=== PATIENT | male | born 1980 | race Caucasian/White ===

== ENCOUNTER 2016-10-24 06:52 | Emergency (ER) | payer BC ==
[~2016-10-24] VITALS: Ht 182.9 cm; Wt 83.9 kg
--- NOTE | 2016-10-24 06:52 | NUR ---
PT BIB SELF LEFT TESTICULAR PAIN X 2 HRS, TOOK OTC SEXUAL ENHANCING PILLS. VSS. AWAITING MD ORDER.
[2016-10-24] MEDS ORDERED: ONDANSETRON HCL/PF 4 MG/2 ML VIAL ONE (07:08)
[2016-10-24] MEDS ORDERED: KETOROLAC TROMETHAMINE 15 MG/ML VIAL ONE (07:08)
[2016-10-24] MEDS ORDERED: MORPHINE SULFATE INJ 4 MG/ML DISP.SYRIN ONE (07:08)
--- NOTE | 2016-10-24 07:10 | NUR ---
AT BEDSIDE FOR EVAL
[2016-10-24] MEDS ORDERED: ONDANSETRON HCL/PF 4 MG/2 ML VIAL IVP ONE (07:30)
[2016-10-24] MEDS ORDERED: KETOROLAC TROMETHAMINE INJ 30 MG/ML VIAL IV ONE (07:30)
[2016-10-24] MEDS ORDERED: MORPHINE SULFATE INJ 2 MG/ML DISP.SYRIN IV ONE (07:30)
--- NOTE | 2016-10-24 07:45 | NUR ---
BIAS BINDING FOLDER AT BEDSIDE
[2016-10-24] MEDS ORDERED: AZITHROMYCIN 250 MG TABLET ONE (08:26)
[2016-10-24] MEDS ORDERED: CEFTRIAXONE 500 MG VIAL ONE (08:26)
[2016-10-24] MEDS ORDERED: LIDOCAINE /MPF 1% VIAL 5 ML VIAL ONE (08:27)
[2016-10-24] MEDS ORDERED: AZITHROMYCIN 250 MG TABLET PO ONE (08:30)
[2016-10-24] MEDS ORDERED: CEFTRIAXONE 500 MG VIAL IM ONE (08:30)
[2016-10-24] MEDS ORDERED: HYDROCODONE/APAP 10/325MG 1 EA TABLET PO ONE (09:00)
[2016-10-24] MEDS ORDERED: HYDROCODONE/APAP 10/325MG 1 EA TABLET ONE (09:12)
--- NOTE | 2016-10-24 09:22 | NUR ---
PATIENT STATED THAT HE WILL TAKE [employer]BER HOME. PATIENT WAS INSTRUCTED THAT HE CANNOT DRIVE YET BECAUSE HE HAD MORPHINE AND NORCO. PATIENT VERBALIZED UNDERSTANDING OF INSTRUCTIONS.
[2016-10-24 09:28] VITALS: BP 125/80
[2016-10-24 13:22] LABS: APPEARANCE,URINE CLEAR (CLEAR); BILIRUBIN,URINE NEGATIVE (NEGATIVE); BLOOD, URINE 1+ Ery/uL (NEGATIVE); COLOR,URINE YELLOW (YELLOW); KETONES,URINE 1+ (NEGATIVE); LEUKOCYTE ESTERASE ,URINE NEGATIVE (NEGATIVE); NITRITE, URINE NEGATIVE (NEGATIVE); PH,URINE 5.5 (5.0-8.0); PROTEIN,URINE NEGATIVE (NEGATIVE); UGLUCOSE NEGATIVE (NEGATIVE); UROBILINOGEN,URINE 0.2 EU/dL (0.2)
[2016-10-24 13:42] LABS: WBC,URINE NONE SEEN /HPF (0-3)
[2016-10-24 13:43] LABS: ADD URINE CULTURE NO; BACTERIA,URINE None seen /HPF (None Seen); SQUAMOUS EPITHELIAL CELL,UR Few /HPF (None Seen)
[2016-10-26 07:37] LABS: *NEISSERIA GONORRHOEAE NAA Negative (Negative); CHLAMYDIA TRACHOMATIS NAA Negative (Negative)
== END 2016-10-24 09:29 | disposition home or self-care (01) ==
LOC: ER 06:54
DX: N45.1 Epididymitis (principal); F17.200 Nicotine dependence, unspecified, uncomplicated
CPT/HCPCS: 76870-TC; 81000-TC; 87086-TC; 87491; 87591; A4606; J0696; J1885; J2270; J2405; J3490; Z7610

== ENCOUNTER 2016-10-27 04:45 | Emergency (ER) | payer BC ==
[~2016-10-27] VITALS: Ht 172.7 cm; Wt 86.2 kg
--- NOTE | 2016-10-27 05:05 | NUR ---
PT A/OX4 BREATHING EFFORTLESSLY ON ROOM AIR, PT STATES HE WAS HERE 5 DAYS AGO AND STATES HE WAS HVAING LLQ ABD PAIN WITH LEFT TESTICLE PAIN THEN AND NOW HE IS STILL HVAING THE LLQ ABD PAIN BUT NO TESTICLE PAIN. PT STATES HE HAS NOT HAD ABOWEL MOVEMENT IN 5 DAYS, PT ON MONITOR IN MD BOBBY IN ROOM WILL CONTINUE TO MONITOR.
[2016-10-27] MEDS ORDERED: LACTULOSE 10 G/15 ML UDC (PYXIS) ONE (05:14)
--- NOTE | 2016-10-27 05:29 | NUR ---
Patient discharged to home in stable condition. Written and verbal after care instructions given. Patient verbalizes understanding of instruction. PT ambulatory with a steady gait
[2016-10-27] MEDS ORDERED: LACTULOSE 10 G/15 ML UDC (PYXIS) PO ONE (05:30)
[2016-10-27 05:32] VITALS: BP 133/79
== END 2016-10-27 05:34 | disposition home or self-care (01) ==
LOC: ER 04:45
DX: K59.00 Constipation, unspecified (principal); R31.29 Other microscopic hematuria; F17.200 Nicotine dependence, unspecified, uncomplicated
CPT/HCPCS: 99282; A4606; Z7610